=== PATIENT | female | born 2000 ===

== ENCOUNTER → 2024-02-14 | Outpatient (CLI) | payer OTHER | LOC: LAB 15:17 → LAB SHORT 15:17 | DX: R30.0 Dysuria (principal) | CPT/HCPCS: 87077; 87086; 87186 ==

== ENCOUNTER 2025-02-26 01:14 | Emergency (ER) | payer OTHER ==
[~2025-02-26] VITALS: Ht 149.9 cm; Wt 38.1 kg
== END 2025-02-26 04:44 | disposition home or self-care (01) ==
LOC: ER 01:14
DX: S83.92XA Sprain of unspecified site of left knee, initial encounter (principal); Z59.89 Other problems related to housing and economic circumstances; X58.XXXA Exposure to other specified factors, initial encounter
CPT/HCPCS: 99283; A9270